=== PATIENT | male | born 2000 | race Caucasian/White ===

== ENCOUNTER 2020-12-07 13:38 | Emergency (ER) | payer OTHER ==
[~2020-12-07] VITALS: Ht 182.9 cm; Wt 81.2 kg
[2020-12-07 13:46] VITALS: BP 134/62
--- NOTE | 2020-12-07 14:13 | NUR ---
Pt [facility] room [facility], ambulatory with steady gait.
[2020-12-07] MEDS ORDERED: AMPH30CA6 PO (14:25)
[2020-12-07] MEDS ORDERED: IBUPROFEN 600 MG TABLET ONE (14:30)
[2020-12-07] MEDS ORDERED: IBUPROFEN 600 MG TABLET PO ONE (14:30)
--- NOTE | 2020-12-07 14:34 | NUR ---
Pt medicated per [facility], provided ice pack per order. Pt to xray via [facility].
== END 2020-12-07 16:03 | disposition home or self-care (01) ==
LOC: ED 14:49
DX: S50.11XA Contusion of right forearm, initial encounter (principal); X58.XXXA Exposure to other specified factors, initial encounter; Y93.89 Activity, other specified; Y92.410 Unspecified street and highway as the place of occurrence of the external cause; Y99.8 Other external cause status
CPT/HCPCS: 99283

== ENCOUNTER 2021-01-27 15:03 | Emergency (ER) | payer OTHER ==
[~2021-01-27] VITALS: Ht 182.9 cm; Wt 83.1 kg
[~2021-01-27 15:03] MED LIST: AMPH30CA6 PO
[2021-01-27 15:06] VITALS: BP 126/89
[2021-01-27] MEDS ORDERED: IBUPROFEN 200 MG TABLET PO ONE (15:30)
[2021-01-27] MEDS ORDERED: IBUPROFEN 600 MG TABLET ONE (15:36)
== END 2021-01-27 16:28 | disposition home or self-care (01) ==
LOC: ED 16:24
DX: S83.412A Sprain of medial collateral ligament of left knee, initial encounter (principal); X58.XXXA Exposure to other specified factors, initial encounter; Y93.89 Activity, other specified; Y92.89 Other specified places as the place of occurrence of the external cause; Y99.8 Other external cause status
CPT/HCPCS: 29505; 99283